=== PATIENT | female | born 1985 | race American Indian/Alaskan Native ===

== ENCOUNTER 2018-03-04 08:55 | Emergency (ER) | payer SELFPAY ==
[2018-03-04 09:10] VITALS: BP 124/82
[2018-03-04] MEDS ORDERED: ULTRAM PO ONE (09:51)
--- NOTE | 2018-03-04 09:51 | Emergency Department Report ---
ED ENT HPI - General Chief complaint: Dental/Oral Stated complaint: TOOTHACHE Time Seen by Provider: 03/04/18 09:31 Source: patient Mode of arrival: Ambulatory Limitations: No Limitations - History of Present Illness Initial comments: This is a 32-year-old -[place] female who presents with a tooth ache to right upper side for 3 days. Patient reports history of caries with filling that she believes is infected. Patient states she has taken aspirin with no improvement of symptoms. She is able to tolerate eating and cold or hot liquids. She has an appointment for this Sunday with her dentist but requests something for pain until she get him into us. Denies nausea or vomiting, drooling, sore throat, difficulty swallowing, fever, and chest pain. MD complaint: tooth pain Onset/Timin -: days(s) Location: tooth # (#1 and #2) 1 - Dental caries 2 - Dental caries, surrounding gum swelling Severity: moderate Severity scale (0 -10): 7 Quality: aching, other (throbbing) Consistency: constant Improves with: none Worsens with: none Context-Epistaxis: aspirin use Context- Dental: history of dental caries Associated Symptoms: gum swelling, toothache. denies: fever, cough, pain with swallowing, sore throat, tinnitus, hearing loss, discharge from ear, rhinorrhea - Related Data Previous Rx's Medication Instructions Recorded Last Taken Type Naproxen [Naprosyn] 500 mg PO BID #15 tablet 03/04/18 Unknown Rx traMADol [Ultram 50 MG tab] 50 mg PO Q6HR PRN #12 tablet 03/04/18 Unknown Rx Allergies Allergy/AdvReac Type Severity Reaction Status Date / Time No Known Allergies Allergy Unverified 03/04/18 09:07 ED Dental HPI - General Chief complaint: Dental/Oral Stated complaint: TOOTHACHE Time Seen by Provider: 03/04/18 09:31 Source: patient Mode of arrival: Ambulatory Limitations: No Limitations - Related Data Previous Rx's Medication Instructions Recorded Last Taken Type Naproxen [Naprosyn] 500 mg PO BID #15 tablet 03/04/18 Unknown Rx traMADol [Ultram 50 MG tab] 50 mg PO Q6HR PRN #12 tablet 03/04/18 Unknown Rx Allergies Allergy/AdvReac Type Severity Reaction Status Date / Time No Known Allergies Allergy Unverified 03/04/18 09:07 ED Review of Systems ROS: Stated complaint: TOOTHACHE Other details as noted in HPI Constitutional: denies: chills, fever ENT: dental pain. denies: ear pain, throat pain, hearing loss, epistaxis, congestion Respiratory: denies: cough, shortness of breath, wheezing Cardiovascular: denies: chest pain, palpitations Gastrointestinal: denies: abdominal pain, nausea, diarrhea Neurological: denies: headache, weakness, paresthesias Psychiatric: denies: anxiety, depression ED Past Medical Hx - Past Medical History Previous Medical History?: No - Surgical History Past Surgical History?: No - Social History Smoking Status: Never Smoker Substance Use Type: None - Medications Home Medications: Home Medications Medication Instructions Recorded Confirmed Last Taken Type Naproxen [Naprosyn] 500 mg PO BID #15 tablet 03/04/18 Unknown Rx traMADol [Ultram 50 MG tab] 50 mg PO Q6HR PRN #12 tablet 03/04/18 Unknown Rx ED Physical Exam - General Limitations: No Limitations General appearance: alert, in no apparent distress - ENT ENT exam: Present: mucous membranes moist, other (#1 and #2 dental caries, surrounding mucosal swelling, tenderness) - Neck Neck exam: Present: normal inspection, full ROM. Absent: tenderness, meningismus, lymphadenopathy, thyromegaly - Respiratory Respiratory exam: Present: normal lung sounds bilaterally. Absent: respiratory distress - Cardiovascular Cardiovascular Exam: Present: regular rate, normal rhythm. Absent: systolic murmur, diastolic murmur, rubs, gallop - GI/Abdominal GI/Abdominal exam: Present: soft, normal bowel sounds - Neurological Exam Neurological exam: Present: alert, oriented X3, normal gait - Psychiatric Psychiatric exam: Present: normal affect, normal mood - Skin Skin exam: Present: warm, dry, intact, normal color. Absent: rash ED Course Vital Signs 03/04/18 09:08 Temperature 97.9 F Pulse Rate 67 Respiratory 16 Rate Blood Pressure 124/82 O2 Sat by Pulse 100 Oximetry ED Medical Decision Making - Medical Decision Making This is a 32-year-old female that presents with toothache on right upper side for 3 days. Patient is stable and was examined by me. Vitals are normal. Given tramadol 50 mg po once in ER. Susceptible of dental caries. Start tramadol 50 mg po q6h prn #12 and naproxen 500 mg po bid prn for pain. Discussed plan with patient. She agreed with ER plan. Discharged home with ibuprofen and tramadol. Follow up with dentist and 3-5 days. Critical care attestation.: If time is entered above; I have spent that time in minutes in the direct care of this critically ill patient, excluding procedure time. ED Disposition Clinical Impression: Dental caries, Toothache Disposition: TO HOME OR SELFCARE Is pt being admited?: No Does the pt Need Aspirin: No Condition: Stable Instructions: Dental Caries (ED), Toothache (ED) Additional Instructions: Take ibuprofen or tramadol for pain control. Use cool or warm compresses for swelling. Follow up with Dentist in 2-3 days. Prescriptions: Naproxen [Naprosyn] 500 mg PO BID #15 tablet traMADol [Ultram 50 MG tab] 50 mg PO Q6HR PRN #12 tablet PRN Reason: Pain Referrals: [facility] [Outside] - 3-5 Days [facility] [Outside] - 3-[address] [facility] [Outside] - 3-5 Days Forms: Work/School Release Form(ED) Time of Disposition: 09:55 Print Language: FAROESE
== END 2018-03-04 10:09 | disposition home or self-care (01) ==
LOC: ED 08:55
DX: K02.9 Dental caries, unspecified (principal)
CPT/HCPCS: 99282